=== PATIENT | male | born 1945 | race Caucasian/White ===

== ENCOUNTER 2017-11-17 22:38 | Emergency (ER) | payer MEDICARE, OTHER ==
[~2017-11-17] VITALS: Ht 190.5 cm; Wt 122.5 kg
[~2017-11-17 22:38] MED LIST: ALLOPURINOL300 MG PO; ALLOPURINOL5 GM; ASPIR 8181 MG PO; INVOKANA PO; KOMBIGLYZE XR1 EAC2 PO; LIPITOR10 MG PO; METFORMIN HCL500 MG PO; PRINIVIL5 MG; TOPROL XL25 MG PO; VICTOZA 2-0.6 MG/0.1 INJ; VITAMIN B-12250 MCG PO; ZESTRIL20 MG PO
[2017-11-17 23:25] LABS: CLARITY,URINE CLOUDY (CLEAR); COLOR,URINE YELLOW (YELLOW)
[2017-11-17 23:26] LABS: BILIRUBIN,URINE NEGATIVE (NEGATIVE); KETONES,URINE NEGATIVE (NEGATIVE); LEUKOCYTE ESTERASE ,URINE 1+ (NEGATIVE); NITRITE,URINE POSITIVE (NEGATIVE); PROTEIN,URINE DIPSTICK 2+ (NEGATIVE); URINE UROBILINOGEN 0.2 mg/dL (0.2 - 1)
[2017-11-17 23:33] LABS: BASOPHILS # (AUTO) 0.1 (0.0-0.1); EOSINOPHILS # (AUTO) 0.2 (0.0-0.4); EOSINOPHILS % 2.1 % (0.0-6.0); HEMATOCRIT 37.4 % (38.2-49.6); HEMOGLOBIN 12.6 g/dL (14.0-18.0); LYMPHOCYTES # (AUTO) 1.2 (1.0-3.2); LYMPHOCYTES % 15.2 % (18.0-39.1); MEAN CORPUSCULAR HEMOGLOBIN 33.1 pg (28-32); MEAN CORPUSCULAR HGB CONC 33.7 g/dL (31-35); MEAN CORPUSCULAR VOLUME 98.2 fL (81-99); MONOCYTES # (AUTO) 0.7 (0.2-0.8); MONOCYTES % 9.5 % (4.4-11.3); NEUTROPHILS # (AUTO) 5.6 (2.1-6.9); NEUTROPHILS % 71.8 % (38.7-80.0); PLATELET COUNT 214 x10e3/uL (140-360); RED BLOOD COUNT 3.81 x10e6/uL (4.3-5.7); RED CELL DISTRIBUTION WIDTH 13.5 % (11.7-14.4)
[2017-11-17 23:35] LABS: BACTERIA,URINE MODERATE /HPF; EPITHELIAL CELLS,URINE RARE /LPF; WBC,URINE (MAN) >50 /HPF (0-5)
[2017-11-17 23:52] LABS: ALBUMIN/GLOBULIN RATIO 1.2 (0.8-2.0); ANION GAP 17.2 mmol/L (8-16); CALCIUM 10.1 mg/dL (8.4-10.2); CREATININE, SERUM 1.22 mg/dL (0.72-1.25); POTASSIUM 4.2 mmol/L (3.5-5.1)
[2017-11-18] MEDS ORDERED: CEFTRIAXONE SOD 1 GM VIAL IV ONE (01:30)
[2017-11-18 01:46] VITALS: BP 126/74
== END 2017-11-18 02:40 | disposition home or self-care (01) ==
LOC: ER 22:38
DX: R33.9 Retention of urine, unspecified (principal); N30.91 Cystitis, unspecified with hematuria; E11.9 Type 2 diabetes mellitus without complications; I10 Essential (primary) hypertension; M10.9 Gout, unspecified; Z85.46 Personal history of malignant neoplasm of prostate
CPT/HCPCS: 51702; 87086; 99284; J0696; 51700

== ENCOUNTER → 2018-05-16 | Outpatient (CLI) | payer MEDICARE, OTHER | LOC: RAD 09:43 | PROVIDERS: ATTEND Family Medicine | DX: Z01.810 Encounter for preprocedural cardiovascular examination (principal) | CPT/HCPCS: 93306 ==

== ENCOUNTER → 2018-05-25 | Outpatient (RCR) | payer MEDICARE, OTHER ==
--- NOTE | 2018-05-09 16:42 | Diagnostic Imaging Report ---
EXAMINATION: PA and lateral views of the chest. COMPARISON: None CLINICAL HISTORY: Preoperative evaluation for cardiovascular surgery DISCUSSION: Lines/tubes: None. Lungs: Lingular atelectasis. No pneumonia or pulmonary edema. Pleura: No pleural effusion or pneumothorax. Heart and mediastinum: The cardiomediastinal silhouette is normal. Bones and soft tissues: No acute bony abnormalities. IMPRESSION: No acute cardiopulmonary abnormalities. Signed by: Dr. Pasquale Banegas M.D. on 05/09/2018 4:39 PM
== END ==
LOC: WCC 05-09 12:20
PROVIDERS: ATTEND Family Medicine
DX: E11.8 Type 2 diabetes mellitus with unspecified complications (principal); D04.8 Carcinoma in situ of skin of other sites; N30.41 Irradiation cystitis with hematuria; I10 Essential (primary) hypertension; Z01.810 Encounter for preprocedural cardiovascular examination
CPT/HCPCS: 36415 ×5; 71046; 82948 ×5; 93005; 99202; G0277 ×5

== ENCOUNTER 2018-06-15 11:36 | Outpatient (RCR) | payer MEDICARE, OTHER | END 2018-06-25 | LOC: WCC 11:36 | PROVIDERS: ATTEND Family Medicine | DX: E11.8 Type 2 diabetes mellitus with unspecified complications (principal); D04.8 Carcinoma in situ of skin of other sites; I10 Essential (primary) hypertension; N30.41 Irradiation cystitis with hematuria; Z01.810 Encounter for preprocedural cardiovascular examination | CPT/HCPCS: 36415 ×12; 82948 ×14; G0277 ×15 ==

== ENCOUNTER 2018-07-13 12:31 | Outpatient (RCR) | payer MEDICARE, OTHER | END 2018-07-26 | LOC: WCC 12:31 | PROVIDERS: ATTEND Family Medicine | DX: E11.8 Type 2 diabetes mellitus with unspecified complications (principal); N30.41 Irradiation cystitis with hematuria; D04.8 Carcinoma in situ of skin of other sites; I10 Essential (primary) hypertension; Z01.810 Encounter for preprocedural cardiovascular examination | CPT/HCPCS: 36415 ×9; 82948 ×10; G0277 ×10 ==

== ENCOUNTER → 2018-09-25 | Outpatient (CLI) | payer MEDICARE, OTHER ==
--- NOTE | 2018-09-25 11:25 | Diagnostic Imaging Report ---
EXAMINATION: PA and lateral views of the chest. COMPARISON: 05/09/2018 CLINICAL HISTORY: Preoperative study for cardiovascular procedure DISCUSSION: Lungs are well-inflated. Lingular and right lower lobe atelectasis or focal fibrotic change, unchanged. No airspace consolidation or pleural effusion. Stable cardiomediastinal contour with tortuous thoracic aorta. No pulmonary edema. No acute osseous abnormality. IMPRESSION: No acute cardiopulmonary abnormalities. Signed by: Dr. Herson Lujan M.D. on 09/25/2018 11:22 AM
== END ==
LOC: RAD 10:39
PROVIDERS: ATTEND Family Medicine
DX: Z01.810 Encounter for preprocedural cardiovascular examination (principal)
CPT/HCPCS: 71046

== ENCOUNTER → 2018-10-23 | Outpatient (RCR) | payer MEDICARE, OTHER | LOC: WCC 09-27 14:08 | PROVIDERS: ATTEND Family Medicine | DX: E11.8 Type 2 diabetes mellitus with unspecified complications (principal); I10 Essential (primary) hypertension; D04.8 Carcinoma in situ of skin of other sites; N30.41 Irradiation cystitis with hematuria; Z01.810 Encounter for preprocedural cardiovascular examination | CPT/HCPCS: G0277 ×16 ==

== ENCOUNTER 2018-11-14 14:22 | Outpatient (RCR) | payer MEDICARE, OTHER | END 2018-11-23 | LOC: WCC 14:22 | PROVIDERS: ATTEND Family Medicine | DX: E11.8 Type 2 diabetes mellitus with unspecified complications (principal); N30.41 Irradiation cystitis with hematuria; D04.8 Carcinoma in situ of skin of other sites; I10 Essential (primary) hypertension; Z01.810 Encounter for preprocedural cardiovascular examination | CPT/HCPCS: 36415 ×11; 82948 ×13; 99212; G0277 ×14 ==

== ENCOUNTER 2019-03-20 11:55 | Outpatient (RCR) | payer MEDICARE, OTHER | END 2019-03-25 | LOC: WCC 11:55 | PROVIDERS: ATTEND Family Medicine | DX: E11.8 Type 2 diabetes mellitus with unspecified complications (principal); C67.9 Malignant neoplasm of bladder, unspecified; D04.8 Carcinoma in situ of skin of other sites; N30.41 Irradiation cystitis with hematuria; I10 Essential (primary) hypertension; J45.998 Other asthma; Z01.810 Encounter for preprocedural cardiovascular examination; Z01.811 Encounter for preprocedural respiratory examination ==

== ENCOUNTER → 2021-05-26 | Outpatient (CLI) | payer MEDICARE, OTHER | LOC: RAD 11:10 | PROVIDERS: ATTEND Orthopaedic Surgery | DX: M25.552 Pain in left hip (principal) ==

== ENCOUNTER 2021-08-05 05:02 | Observation (INO) | payer MEDICARE, OTHER ==
[~2021-08-05] VITALS: Ht 188 cm; Wt 131.5 kg
[2021-08-05] MEDS ORDERED: CIPRO500 MG PO (05:36)
[2021-08-05 05:59] LABS: CLARITY,URINE TURBID (CLEAR); COLOR,URINE YELLOW (YELLOW); LEUKOCYTE ESTERASE ,URINE SMALL (NEGATIVE); NITRITE,URINE NEGATIVE (NEGATIVE); PROTEIN,URINE DIPSTICK 2+ (NEGATIVE)
[2021-08-05 06:00] LABS: KETONES,URINE NEGATIVE (NEGATIVE); URINE UROBILINOGEN 0.2 mg/dL (0.2 - 1)
[2021-08-05 06:09] LABS: BACTERIA,URINE FEW /HPF; EPITHELIAL CELLS,URINE FEW /LPF; WBC,URINE (MAN) >50 /HPF (0-5)
[2021-08-05] MEDS ORDERED: LIDOCAINE JELLY 2% 10ML URO-JET ONE (06:35)
[2021-08-05] MEDS ORDERED: Morphine 4mg Syringe 4 MG/ML INJ IV PRN (08:45)
[2021-08-05] MEDS ORDERED: ONDANSETRON HCL INJ 2MG/ML 2ML 2 MG/ML VIAL IV PRN (08:45)
[2021-08-05 09:18] LABS: BASOPHILS # (AUTO) 0.1 (0.0-0.1); BASOPHILS % 0.8 % (0.0-1.0); EOSINOPHILS # (AUTO) 0.1 (0.0-0.4); EOSINOPHILS % 1.5 % (0.0-6.0); HEMATOCRIT 40.4 % (38.2-49.6); HEMOGLOBIN 12.9 g/dL (14.0-18.0); LYMPHOCYTES # (AUTO) 1.5 (1.0-3.2); MEAN CORPUSCULAR HGB CONC 31.9 g/dL (31-35); MEAN CORPUSCULAR VOLUME 97.1 fL (81-99); MONOCYTES # (AUTO) 0.6 (0.2-0.8); NEUTROPHILS # (AUTO) 3.7 (2.1-6.9); NEUTROPHILS % 62.4 % (38.7-80.0); PLATELET COUNT 199 x10e3/uL (140-360); RED BLOOD COUNT 4.16 x10e6/uL (4.3-5.7); RED CELL DISTRIBUTION WIDTH 14.2 % (11.7-14.4)
[2021-08-05] MEDS: SODIUM CHLORIDE 0.9% 1000ML 1,000 ML IV SCH ×2 (09:24→14:35)
[2021-08-05 09:47] LABS: INR 0.91; PROTHROMBIN TIME 12.9 seconds (11.9-14.5)
[2021-08-05 09:53] LABS: ANION GAP 14.2 mmol/L (8-16); CALCIUM 9.8 mg/dL (8.4-10.2); CREATININE, SERUM 1.19 mg/dL (0.72-1.25); POTASSIUM 4.2 mmol/L (3.5-5.1)
[2021-08-05 10:01] LABS: CREATINE KINASE MB 0.8 ng/mL (0-5.0)
[2021-08-05] MEDS ORDERED: DEXAMETHASONE SOD PHOS INJ 4 MG/ML SDV ONE (12:38)
[2021-08-05] MEDS ORDERED: ONDANSETRON HCL INJ 2MG/ML 2ML 2 MG/ML VIAL ONE (12:38)
[2021-08-05] MEDS ORDERED: POVIDONE IODINE 0.05% 0.05 % ML PO ONE (12:38)
[2021-08-05] MEDS ORDERED: SEVOFLURANE INHAL SOLN 250 ML PEN BTL ONE (12:38)
[2021-08-05] MEDS ORDERED: LIDOCAINE HCL 2% LOCAL INJ 5 ML SDV VIAL INJ ONE (12:38)
[2021-08-05] MEDS ORDERED: PROPOFOL IV EMULSION 10 MG/ML 20 ML VIAL ONE (12:38)
[2021-08-05] MEDS ORDERED: BELLADONNA/OPIUM 30 MG SUPP RC ONE (12:44)
[2021-08-05] MEDS ORDERED: IOPAMIDOL 300MG/ML 50ML INFUS..BTL IV ONE ×3 (12:44→13:22)
[2021-08-05 13:00] VITALS: BP 153/79
[2021-08-05] MEDS ORDERED: MIDAZOLAM HCL 2 MG/2 ML VIAL ONE (13:12)
[2021-08-05] MEDS ORDERED: FENTANYL CITRATE/PF 100MCG/2 ML INJ ONE (13:12)
[2021-08-05 14:39] VITALS: BP 153/79
[2021-08-05 17:50] VITALS: BP 138/74
[2021-08-05] MEDS ORDERED: CLONIDINE HCL0.3 MG PO (18:49)
[2021-08-05] MEDS ORDERED: FLOMAX0.4 MG PO (18:49)
[2021-08-05] MEDS ORDERED: GLIMEPIRIDE4 MG (18:49)
[2021-08-05] MEDS ORDERED: LYRICA150 MG PO (18:49)
[2021-08-05] MEDS ORDERED: ZYTIGA250 MG PO (18:49)
[2021-08-05] MEDS ORDERED: FARXIGA10 MG PO (18:49)
[2021-08-05 19:30] VITALS: BP 137/58
[2021-08-05] MEDS: CIPROFLOXACIN 400 MG/D5W 200ML 200 ML IV SCH (19:32)
[2021-08-05] MEDS ORDERED: CLONIDINE HCL 0.1 MG TAB PO SCH (21:00)
[2021-08-05] MEDS ORDERED: TAMSULOSIN HCL 0.4 MG CAP PO SCH (21:00)
[2021-08-05 21:05] VITALS: BP 137/58
[2021-08-05] MEDS ORDERED: DEXTROSE 50% SYRINGE 50 ML IV PRN (22:30)
[2021-08-05] MEDS: INSULIN LISPRO 100 UNIT/1 ML 3ML VIAL SQ SCH (22:32)
[2021-08-06 00:34] VITALS: BP 111/56
[2021-08-06] MEDS: ACETAMINOPHEN 325 MG TAB PO PRN ×2 (01:55→11:31)
[2021-08-06] MEDS: CIPROFLOXACIN 400 MG/D5W 200ML 200 ML IV SCH (05:04)
[2021-08-06 05:13] LABS: BASOPHILS % 0.4 % (0.0-1.0); EOSINOPHILS # (AUTO) 0.1 (0.0-0.4); EOSINOPHILS % 1.1 % (0.0-6.0); HEMATOCRIT 32.7 % (38.2-49.6); HEMOGLOBIN 10.2 g/dL (14.0-18.0); LYMPHOCYTES # (AUTO) 0.8 (1.0-3.2); LYMPHOCYTES % 14.5 % (18.0-39.1); MEAN CORPUSCULAR HEMOGLOBIN 31.1 pg (28-32); MEAN CORPUSCULAR HGB CONC 31.2 g/dL (31-35); MEAN CORPUSCULAR VOLUME 99.7 fL (81-99); MONOCYTES # (AUTO) 0.4 (0.2-0.8); MONOCYTES % 8.2 % (4.4-11.3); NEUTROPHILS % 75.6 % (38.7-80.0); PLATELET COUNT 167 x10e3/uL (140-360); RED BLOOD COUNT 3.28 x10e6/uL (4.3-5.7); RED CELL DISTRIBUTION WIDTH 14.2 % (11.7-14.4)
[2021-08-06 05:51] LABS: ALBUMIN 2.7 g/dL (3.5-5.0); ANION GAP 10.9 mmol/L (8-16); CALCIUM 8.1 mg/dL (8.4-10.2); CREATININE, SERUM 1.16 mg/dL (0.72-1.25); POTASSIUM 3.9 mmol/L (3.5-5.1)
[2021-08-06 06:03] VITALS: BP 108/63
[2021-08-06] MEDS ORDERED: SODIUM CHLORIDE 0.9% 1000ML 1,000 ML IV SCH (06:30)
[2021-08-06] MEDS: INSULIN LISPRO 100 UNIT/1 ML 3ML VIAL SQ SCH ×2 (07:30→11:30)
[2021-08-06 07:46] VITALS: BP 108/63
[2021-08-06] MEDS ORDERED: GLIMEPIRIDE 2 MG TAB PO SCH (08:00)
[2021-08-06 08:09] VITALS: BP 111/57
[2021-08-06] MEDS ORDERED: ONDANSETRON HCL 4 MG ORAL DISINTEGRATING TAB PO PRN (08:30)
[2021-08-06] MEDS ORDERED: LISINOPRIL 20 MG TAB PO SCH (09:00)
[2021-08-06] MEDS ORDERED: PREGABALIN 75 MG CAP PO SCH (09:00)
[2021-08-06] MEDS ORDERED: METOPROLOL SUCCINATE 50 MG TAB XL PO SCH (09:00)
[2021-08-06] MEDS ORDERED: BACTRIM DS TAB1 EACH PO (11:26)
[2021-08-06 11:49] VITALS: BP 118/54
[2021-08-06] MEDS ORDERED: CIPROFLOXACIN 400 MG/D5W 200ML 200 ML IV SCH (13:00)
[2021-08-06] MEDS ORDERED: CIPROFLOXACIN 500 MG TAB PO SCH (21:00)
== END 2021-08-06 15:15 | disposition home or self-care (01) ==
LOC: ER 05:26 → ERHOLD 07:56 → MED/SURG2 10:19
PROVIDERS: ADMIT Internal Medicine; ATTEND Internal Medicine
DX: C61 Malignant neoplasm of prostate (principal); R33.8 Other retention of urine; C79.51 Secondary malignant neoplasm of bone; N39.0 Urinary tract infection, site not specified; E66.9 Obesity, unspecified; Z68.37 Body mass index [BMI] 37.0-37.9, adult; M10.9 Gout, unspecified; E11.40 Type 2 diabetes mellitus with diabetic neuropathy, unspecified; I13.10 Hypertensive heart and chronic kidney disease without heart failure, with stage 1 through stage 4 chronic kidney disease, or unspecified chronic kidney disease; E11.22 Type 2 diabetes mellitus with diabetic chronic kidney disease; N18.30 Chronic kidney disease, stage 3 unspecified; N35.819 Other urethral stricture, male, unspecified site; N40.1 Benign prostatic hyperplasia with lower urinary tract symptoms; Q54.9 Hypospadias, unspecified; Z20.822 Contact with and (suspected) exposure to COVID-19; N32.89 Other specified disorders of bladder; Z79.4 Long term (current) use of insulin
CPT/HCPCS: 36415 ×2; 51703; 52001; 52005; 53855; 71045; 74420; 80048; 80053; 81001; 82550; 82553; 82948 ×2; 84484; 85025 ×2; 85610; 87086; 93005; 99284; C1758; G0378 ×2; J0744 ×2; J1100; J2001; J2250; J2270; J2405; J2704; J3010; J7030 ×2; Q9967; U0002

== ENCOUNTER 2022-08-13 09:00 | Emergency (ER) | payer MEDICARE, OTHER ==
[~2022-08-13] VITALS: Ht 190.5 cm; Wt 129.3 kg
[~2022-08-13 09:00] MED LIST changes: +AZITHROMYCIN250 MG PO; +BACTRIM DS TAB1 EACH PO; +CIPRO500 MG PO; +CLONIDINE HCL0.3 MG PO; +FARXIGA10 MG PO; +FLOMAX0.4 MG PO; +GLIMEPIRIDE4 MG; +IBUPROFEN400 MG PO; +LYRICA150 MG PO; +MEDROL4 MG PO; +VENTOLIN HFA18 GM INH; +ZYTIGA250 MG PO
[2022-08-13 10:11] LABS: CLARITY,URINE SL CLOUDY (CLEAR); COLOR,URINE YELLOW (YELLOW); LEUKOCYTE ESTERASE ,URINE SMALL (NEGATIVE)
[2022-08-13 10:12] LABS: KETONES,URINE NEGATIVE (NEGATIVE); NITRITE,URINE POSITIVE (NEGATIVE); PROTEIN,URINE DIPSTICK 1+ (NEGATIVE); URINE UROBILINOGEN 0.2 mg/dL (0.2 - 1)
[2022-08-13 10:25] LABS: BACTERIA,URINE MANY /HPF; EPITHELIAL CELLS,URINE FEW /LPF; WBC,URINE (MAN) 21-50 /HPF (0-5)
[2022-08-13] MEDS ORDERED: CEFUROXIME250 MG PO (10:48)
== END 2022-08-13 11:07 | disposition home or self-care (01) ==
LOC: ER 09:13
DX: Z46.6 Encounter for fitting and adjustment of urinary device (principal); N39.0 Urinary tract infection, site not specified; I10 Essential (primary) hypertension; E11.9 Type 2 diabetes mellitus without complications; G47.30 Sleep apnea, unspecified; Z85.46 Personal history of malignant neoplasm of prostate; Z85.830 Personal history of malignant neoplasm of bone
CPT/HCPCS: 81001; 87086; 87186; 99283